=== PATIENT | female | born 1955 | race Hispanic/Latino ===

== ENCOUNTER 2019-07-03 18:35 | Emergency (ER) | payer OTHER ==
[2019-07-03 19:14] LABS: ALBUMIN 3.6 g/dL (3.5-5.0); BILIRUBIN,TOTAL 0.2 mg/dL (0.2-1.0); TOTAL PROTEIN, SERUM 8.1 g/dL (6.0-8.3)
[2019-07-03 19:22] LABS: BASOPHILS % (AUTO) 0.5 % (0.0-5.0); EOSINOPHILS % (AUTO) 3.4 % (0.0-8.0); HEMATOCRIT 34.7 % (36-48); LYMPHOCYTES % (AUTO) 24.8 % (21.0-51.0); MEAN CORPUSCULAR HEMOGLOBIN 26.6 pg (27.0-33.0); MEAN CORPUSCULAR HGB CONC 33.1 g/dL (32.0-36.0); MEAN CORPUSCULAR VOLUME 80.1 fL (79-99); MONOCYTES % (AUTO) 9.2 % (3.0-13.0); NEUTROPHILS % (AUTO) 61.8 % (40.0-77.0); PLATELET COUNT (AUTO) 272 K/uL (130-400); RED BLOOD CELL COUNT(AUTO) 4.33 MIL/uL (4.00-5.50); RED CELL DISTRIBUTION WIDTH 15.8 % (11.0-15.5); WHITE BLOOD COUNT (AUTO) 6.5 K/uL (4.8-10.8)
[2019-07-03 19:26] LABS: INR 1.54 (0.85-1.15); PARTIAL THROMBOPLASTIN TIME 39.4 SEC (26.3-35.5); PROTHROMBIN TIME 16.4 SEC (9.6-11.6)
[2019-07-03] MEDS ORDERED: IOHEXOL-350 75 ML VIAL IV ONE (20:33)
== END 2019-07-03 21:37 | disposition home or self-care (01) ==
LOC: EDH 18:35
DX: R20.2 Paresthesia of skin (principal); R07.89 Other chest pain; E11.9 Type 2 diabetes mellitus without complications; I10 Essential (primary) hypertension; Z86.73 Personal history of transient ischemic attack (TIA), and cerebral infarction without residual deficits; Z95.0 Presence of cardiac pacemaker
CPT/HCPCS: 36415; 70450; 70496; 70498; 71045; 80053; 82550; 84484; 85025; 85610; 85730; 93005; 99285; Q9967

== ENCOUNTER → 2020-01-17 | Outpatient (CLI) | payer MEDICAID | END | disposition home or self-care (01) | LOC: SHCH 15:54 | PROVIDERS: ATTEND Internal Medicine Cardiovascular Disease | DX: I49.5 Sick sinus syndrome (principal) | CPT/HCPCS: 93306; 93356 ==

== ENCOUNTER → 2020-02-01 | Outpatient (CLI) | payer OTHER | END | disposition home or self-care (01) | LOC: OIH 10:00 | PROVIDERS: ATTEND Internal Medicine Cardiovascular Disease | DX: Z13.6 Encounter for screening for cardiovascular disorders (principal) | CPT/HCPCS: 75571 ==

== ENCOUNTER 2020-07-25 14:30 | Emergency (ER) | payer OTHER, MEDICARE ==
[~2020-07-25] VITALS: Ht 160 cm; Wt 84.8 kg
[2020-07-25 14:32] VITALS: BP 121/52
[2020-07-25] MEDS ORDERED: KETOROLAC 30MG VIAL (30MG/ML) IM STA (14:46)
[2020-07-25] MEDS ORDERED: KETOROLAC 30MG VIAL (30MG/ML) ONE (14:53)
[2020-07-25 15:37] LABS: BASOPHILS % (AUTO) 0.6 % (0.0-5.0); EOSINOPHILS % (AUTO) 2.6 % (0.0-8.0); HEMATOCRIT 34.6 % (36-48); MEAN CORPUSCULAR HEMOGLOBIN 26.6 pg (27.0-33.0); MEAN CORPUSCULAR HGB CONC 31.8 g/dL (32.0-36.0); MEAN CORPUSCULAR VOLUME 83.8 fL (79-99); MONOCYTES % (AUTO) 10.2 % (3.0-13.0); NEUTROPHILS % (AUTO) 62.4 % (40.0-77.0); PLATELET COUNT (AUTO) 227 K/uL (130-400); RED BLOOD CELL COUNT(AUTO) 4.13 MIL/uL (4.00-5.50); RED CELL DISTRIBUTION WIDTH 14.9 % (11.0-15.5); WHITE BLOOD COUNT (AUTO) 5.4 K/uL (4.8-10.8)
[2020-07-25 15:40] VITALS: BP 107/41
[2020-07-25 15:43] LABS: APPEARANCE,URINE Clear (CLEAR); BILIRUBIN,URINE Negative (NEGATIVE); COLOR,URINE Yellow (YELLOW); GLUCOSE, URINE (UA) Negative (NEGATIVE); KETONES,URINE Negative (NEGATIVE); LEUKOCYTE ESTERASE ,URINE Negative (NEGATIVE); NITRATE,URINE Negative (NEGATIVE); OCCULT BLOOD,URINE Negative (NEGATIVE); PROTEIN,URINE Negative (NEGATIVE); UROBILINOGEN,URINE 0.2 mg/dL (0.2-1.0)
[2020-07-25 15:47] LABS: POTASSIUM 4.3 mmol/L (3.5-5.1)
[2020-07-25] MEDS ORDERED: MORPHINE 4 MG SYG (4MG/1ML) IV STA (15:47)
[2020-07-25] MEDS ORDERED: ONDANSETRON 4MG INJ IVP STA (15:47)
[2020-07-25 15:51] LABS: ALBUMIN 3.5 g/dL (3.5-5.0); BILIRUBIN,TOTAL 0.2 mg/dL (0.2-1.0)
[2020-07-25 16:22] VITALS: BP 129/64
[2020-07-25] MEDS ORDERED: NAPR-1023 PO (16:40)
[2020-07-25] MEDS ORDERED: CARI350T PO (16:40)
== END 2020-07-25 17:14 | disposition home or self-care (01) ==
LOC: EDH 14:30
DX: M43.10 Spondylolisthesis, site unspecified (principal); M54.5 Low back pain; I10 Essential (primary) hypertension; E11.9 Type 2 diabetes mellitus without complications; Z86.73 Personal history of transient ischemic attack (TIA), and cerebral infarction without residual deficits; Z79.899 Other long term (current) drug therapy
CPT/HCPCS: 36415; 72100; 80053; 81003; 85025; 96374; 96375; 99284; J1885; J2270; J2405

== ENCOUNTER 2020-09-09 07:31 | Day surgery (SDC) | payer OTHER, MEDICARE ==
[2020-09-06 13:44] LABS: BASOPHILS % (AUTO) 0.5 % (0.0-5.0); EOSINOPHILS % (AUTO) 2.9 % (0.0-8.0); LYMPHOCYTES % (AUTO) 25.7 % (21.0-51.0); MEAN CORPUSCULAR HEMOGLOBIN 27.2 pg (27.0-33.0); MEAN CORPUSCULAR HGB CONC 31.6 g/dL (32.0-36.0); MONOCYTES % (AUTO) 9.4 % (3.0-13.0); NEUTROPHILS % (AUTO) 61.1 % (40.0-77.0); PLATELET COUNT (AUTO) 250 K/uL (130-400); WHITE BLOOD COUNT (AUTO) 5.5 K/uL (4.8-10.8)
[2020-09-06 13:50] LABS: POTASSIUM 4.7 mmol/L (3.5-5.1)
[2020-09-06 15:40] VITALS: BP 109/65
[2020-09-09] VITALS (8 sets, daily range): BP systolic 103–132; BP diastolic 50–69
[~2020-09-09] VITALS: Ht 167.6 cm; Wt 84.0 kg
[~2020-09-09 07:31] MED LIST: APIX5TAB PO; CALC-190 PO; DILT360T14 PO; METF-446 PO; METO50TA18 PO; NAPR220C15 PO; PRAV40TA3 PO; PROP225C8 PO
[2020-09-09] MEDS ORDERED: 0.9%NACL 1000ML 1,000 ML IV SCH (08:00)
== END 2020-09-09 11:40 | disposition home or self-care (01) ==
LOC: DAH 07:31
PROVIDERS: ATTEND Internal Medicine Cardiovascular Disease
DX: I48.3 Typical atrial flutter (principal); Z20.822 Contact with and (suspected) exposure to COVID-19; I10 Essential (primary) hypertension; E78.5 Hyperlipidemia, unspecified; E11.9 Type 2 diabetes mellitus without complications; I69.351 Hemiplegia and hemiparesis following cerebral infarction affecting right dominant side; J45.909 Unspecified asthma, uncomplicated; Z79.84 Long term (current) use of oral hypoglycemic drugs; Z79.82 Long term (current) use of aspirin; Z79.01 Long term (current) use of anticoagulants; Z79.899 Other long term (current) drug therapy
CPT/HCPCS: 36415; 80048; 82948 ×2; 85025; 87635; 92960; 93005 ×3; A4215; A4216; A4221; A4222; A4223 ×3; A4606; A4663; A7002; C9803; 99156

== ENCOUNTER 2020-10-11 07:30 | Day surgery (SDC) | payer OTHER, MEDICARE ==
[2020-10-08 14:20] LABS: BASOPHILS % (AUTO) 0.6 % (0.0-5.0); EOSINOPHILS % (AUTO) 2.2 % (0.0-8.0); HEMATOCRIT 37.1 % (36-48); LYMPHOCYTES % (AUTO) 26.6 % (21.0-51.0); MEAN CORPUSCULAR HEMOGLOBIN 27.3 pg (27.0-33.0); MEAN CORPUSCULAR HGB CONC 32.3 g/dL (32.0-36.0); MEAN CORPUSCULAR VOLUME 84.5 fL (79-99); MONOCYTES % (AUTO) 9.2 % (3.0-13.0); NEUTROPHILS % (AUTO) 61.2 % (40.0-77.0); PLATELET COUNT (AUTO) 246 K/uL (130-400); RED BLOOD CELL COUNT(AUTO) 4.39 MIL/uL (4.00-5.50); RED CELL DISTRIBUTION WIDTH 14.6 % (11.0-15.5); WHITE BLOOD COUNT (AUTO) 4.9 K/uL (4.8-10.8)
[2020-10-08 14:36] LABS: CREATININE 1.1 mg/dL (0.5-1.5); POTASSIUM 4.2 mmol/L (3.5-5.1)
[2020-10-10 11:03] VITALS: BP 122/69
[2020-10-11] VITALS (12 sets, daily range): BP systolic 123–144; BP diastolic 53–84
[~2020-10-11] VITALS: Ht 162.6 cm; Wt 83.5 kg
[~2020-10-11 07:30] MED LIST changes: +0.9%NACL 1000ML 1,000 ML IV SCH; +ALBUTEROL SULFATE IH; -NAPR220C15 PO; -PROP225C8 PO; +PROP325C5 PO
[2020-10-11] MEDS ORDERED: PROPOFOL 10 MG/ML 20ML VIAL IV ONE (08:21)
[2020-10-11] MEDS ORDERED: ATROPINE 1MG SYG IVP ONE (08:21)
== END 2020-10-11 09:30 | disposition home or self-care (01) ==
LOC: DAH 07:30
PROVIDERS: ATTEND Internal Medicine Cardiovascular Disease
DX: I48.4 Atypical atrial flutter (principal); Z20.822 Contact with and (suspected) exposure to COVID-19; I48.91 Unspecified atrial fibrillation; I10 Essential (primary) hypertension; E78.5 Hyperlipidemia, unspecified; E11.9 Type 2 diabetes mellitus without complications; Z79.01 Long term (current) use of anticoagulants; Z79.899 Other long term (current) drug therapy; Z86.73 Personal history of transient ischemic attack (TIA), and cerebral infarction without residual deficits; Z79.84 Long term (current) use of oral hypoglycemic drugs; Z98.890 Other specified postprocedural states
CPT/HCPCS: 36415; 80048; 82948; 85025; 87635; 92960; 93005 ×2; A4215; A4216; A4221; A4222; A4223 ×3; A4606; A4663; C9803; J0461; J2704

== ENCOUNTER 2020-11-28 10:59 | Emergency (ER) | payer OTHER, MEDICARE ==
[~2020-11-28] VITALS: Ht 167.6 cm; Wt 81.6 kg
[~2020-11-28 10:59] MED LIST changes: -0.9%NACL 1000ML 1,000 ML IV SCH
[2020-11-28 11:27] LABS: BASOPHILS % (AUTO) 0.6 % (0.0-5.0); EOSINOPHILS % (AUTO) 2.8 % (0.0-8.0); HEMATOCRIT 35.3 % (36-48); LYMPHOCYTES % (AUTO) 26.9 % (21.0-51.0); MEAN CORPUSCULAR HEMOGLOBIN 27.3 pg (27.0-33.0); MEAN CORPUSCULAR HGB CONC 32.3 g/dL (32.0-36.0); MEAN CORPUSCULAR VOLUME 84.7 fL (79-99); MONOCYTES % (AUTO) 9.8 % (3.0-13.0); NEUTROPHILS % (AUTO) 59.5 % (40.0-77.0); PLATELET COUNT (AUTO) 207 K/uL (130-400); RED BLOOD CELL COUNT(AUTO) 4.17 MIL/uL (4.00-5.50); RED CELL DISTRIBUTION WIDTH 14.3 % (11.0-15.5); WHITE BLOOD COUNT (AUTO) 4.7 K/uL (4.8-10.8)
[2020-11-28] MEDS ORDERED: ACETAMINOPHEN 500 MG TABLET PO SCH (11:30)
[2020-11-28 11:39] LABS: POTASSIUM 4.2 mmol/L (3.5-5.1)
[2020-11-28] MEDS ORDERED: ACETAMINOPHEN 500 MG TABLET ONE (11:40)
[2020-11-28 12:00] LABS: INR 1.02 (0.85-1.15); PROTHROMBIN TIME 11.1 SEC (9.6-11.6)
[2020-11-28] MEDS ORDERED: 0.9% NACL 500ML IV.SOLN 500 ML IV SCH (12:00)
[2020-11-28] MEDS ORDERED: 0.9% NACL 500ML IV.SOLN 500 ML IV ONE (12:00)
[2020-11-28 12:01] LABS: PARTIAL THROMBOPLASTIN TIME 29.3 SEC (26.3-35.5)
[2020-11-28] MEDS ORDERED: ACET-66 PO (12:31)
[2020-11-28 12:51] VITALS: BP 143/60
== END 2020-11-28 13:25 | disposition home or self-care (01) ==
LOC: EDH 10:59
DX: M79.602 Pain in left arm (principal); E11.9 Type 2 diabetes mellitus without complications; E78.00 Pure hypercholesterolemia, unspecified; I10 Essential (primary) hypertension; Z79.01 Long term (current) use of anticoagulants; Z79.84 Long term (current) use of oral hypoglycemic drugs; Z79.899 Other long term (current) drug therapy; Z86.73 Personal history of transient ischemic attack (TIA), and cerebral infarction without residual deficits; Z90.49 Acquired absence of other specified parts of digestive tract; Z95.0 Presence of cardiac pacemaker
CPT/HCPCS: 36415; 70450; 73060; 73070; 73090; 80048; 85025; 85610; 85730; 99285; J7040

== ENCOUNTER → 2022-05-18 | Outpatient (CLI) | payer OTHER, MEDICARE ==
[~2022-05-18] MED LIST changes: +ACET-66 PO; +REGADENOSON 0.4 MG/5 ML PF SYG IVP ONE
== END | disposition home or self-care (01) ==
LOC: SHCH 08:06
PROVIDERS: ATTEND Internal Medicine Cardiovascular Disease
DX: R07.9 Chest pain, unspecified (principal); I48.0 Paroxysmal atrial fibrillation; I48.92 Unspecified atrial flutter
CPT/HCPCS: 78452; 96374; 93017; J2785; A9500 ×2

== ENCOUNTER → 2022-05-25 | Outpatient (CLI) | payer OTHER, MEDICARE ==
[~2022-05-25] MED LIST changes: -REGADENOSON 0.4 MG/5 ML PF SYG IVP ONE
== END | disposition home or self-care (01) ==
LOC: SHCH 09:55
PROVIDERS: ATTEND Internal Medicine Cardiovascular Disease
DX: I35.1 Nonrheumatic aortic (valve) insufficiency (principal); I48.0 Paroxysmal atrial fibrillation; I10 Essential (primary) hypertension; E78.5 Hyperlipidemia, unspecified; E11.9 Type 2 diabetes mellitus without complications
CPT/HCPCS: 93306

== ENCOUNTER → 2024-03-23 | Outpatient (CLI) | payer OTHER, MEDICARE ==
[~2024-03-23] MED LIST changes: -ALBUTEROL SULFATE IH; -CALC-190 PO; -DILT360T14 PO; -PRAV40TA3 PO; -PROP325C5 PO
--- NOTE | 2024-03-24 07:32 | HMCSR ---
APPROVED REPORT Laterality: Bilateral Indications r09.89 Doppler Spectral Velocity Analysis PSV / EDVPSV / EDV ECA (R) 66 / cm/sECA (L) 91 / cm/s dICA (R) 79 / 21 cm/sdICA (L) 55 / 16 cm/s Sujatha (R) 74 / 31 cm/smICA (L) 91 / 31 cm/s pICA (R) 41 / 9 cm/spICA (L) 48 / 10 cm/s dCCA (R) 43 / 11 cm/sdCCA (L) 59 / 15 cm/s mCCA (R) 73 / 10 cm/smCCA (L) 74 / 13 cm/s pCCA (R) 75 / 11 cm/spCCA (L) 62 / 8 cm/s Vert (R) 40 / cm/sVert (L) 50 / cm/s Subl. (R) 81 / cm/sSubl. (L) 106 / cm/s ICA/CCA 1.05ICA/CCA 1.23 Technologist Impression Minimal plaque noted in the bilateral carotids. Right and Left ICAs appear patent, without hemodynamic significance. Bilateral vertebral arteries appear antegrade. Conclusion Minimal plaque noted in the bilateral carotids. Right and Left ICAs appear patent, without hemodynamic significance. Bilateral vertebral arteries appear antegrade. Conclusion Minimal plaque noted in the bilateral carotids. Right and Left ICAs appear patent, without hemodynamic significance. Bilateral vertebral arteries appear antegrade.
== END | disposition home or self-care (01) ==
LOC: SHCH 13:21
PROVIDERS: ATTEND Internal Medicine Cardiovascular Disease
DX: R09.89 Other specified symptoms and signs involving the circulatory and respiratory systems (principal)
CPT/HCPCS: 93880